=== PATIENT | female | born 1990 | race Caucasian/White ===

== ENCOUNTER 2017-11-14 15:36 | Emergency (ER) | payer OTHER ==
[2017-11-14 18:31] LABS: URINE BLOOD (Dip) POC Negative (NEGATIVE); URINE GLUCOSE (Dip) POC Negative (NEGATIVE); URINE KETONES (Dip) POC Trace (NEGATIVE); URINE LEUKOCYTE EST (Dip) POC Trace (NEGATIVE); URINE NITRITE (Dip) POC Negative (NEGATIVE); URINE TOTAL PROTEIN POC Negative (NEGATIVE)
[2017-11-14 18:31] LABS: URINE PH (Dip) POC 6.5 (5.0-8.5)
== END 2017-11-14 21:40 | disposition home or self-care (01) ==
LOC: FTE 15:36
DX: B37.3 Candidiasis of vulva and vagina (principal)
CPT/HCPCS: 81003; 99283

== ENCOUNTER 2019-06-30 16:20 | Emergency (ER) | payer OTHER | END 2019-06-30 19:08 | disposition home or self-care (01) | LOC: FTE 16:20 | DX: R05 Cough (principal) | CPT/HCPCS: 99283; Z7502 ==